=== PATIENT | female | born 1995 | race Caucasian/White ===

== ENCOUNTER 2017-06-16 16:52 | Emergency (ER) | payer SELFPAY ==
[~2017-06-16] VITALS: Ht 162.6 cm; Wt 80.0 kg
[2017-06-16 16:54] VITALS: BP 127/78; PULSE 91; RESP 14; TEMP 98.6; O2SAT 98
--- NOTE | 2017-06-16 17:21 | PD ---
Physical Exam Date Seen by Provider: Jun 16, 2017 Time Seen by Provider: 17:20 Narrative 21 year old female here for RLQ pain. Going on for two days. No trauma. No BM or urinary symptoms. No surgeries. Denies any discharge. Has not seen anybody for this. Pain is 7/10. +N/V/D. Vitals are stable in triage. Awaiting bed placement. Data Data Last Documented VS Vital Signs Date Time Temp Pulse Resp B/P (MAP) Pulse Ox O2 Delivery O2 Flow Rate FiO2 06/16/17 16:54 98.6 91 14 127/78 (94) 98 Room Air [facility] Medical Record Reviewed: Yes Supervised Visit with KELLEN: No Clay Lopez Jun 16, 2017 17:21
== END 2017-06-16 19:00 | disposition left against medical advice (07) ==
LOC: NED 16:52
DX: R10.31 Right lower quadrant pain (principal); Z53.21 Procedure and treatment not carried out due to patient leaving prior to being seen by health care provider
CPT/HCPCS: 99281